=== PATIENT | female | born 1980 | race African-American/Black ===

== ENCOUNTER 2017-02-12 15:25 | Emergency (ER) | payer OTHER, SELFPAY ==
--- NOTE | 2017-02-12 17:13 | RAD ---
TWO VIEWS CHEST: Date: 02-12-17 Comparison: None. History: Body aches with pleuritic change pain and cough. FINDINGS: There is no pneumothorax, pleural fluid, focal consolidation or alveolar edema. Heart and mediastinal contours are unremarkable. IMPRESSION: No acute findings. POS: [facility]
[2017-02-12] MEDS ORDERED: Ibuprofen 800 MG TAB ONE (19:06)
[2017-02-12] MEDS ORDERED: Acetaminophen 500 MG TAB ONE (19:06)
[2017-02-12] MEDS ORDERED: Ondansetron ODT 4 MG TAB ONE (19:06)
--- NOTE | 2017-03-14 14:53 | EKG ---
Test Reason : Blood Pressure : / mmHG Vent. Rate : 108 BPM Atrial Rate : 108 BPM P-R Int : 158 ms QRS Dur : 074 ms QT Int : 318 ms P-R-T Axes : 049 007 026 degrees QTc Int : 426 ms Sinus tachycardia Minimal voltage criteria for LVH, may be normal variant Borderline ECG Confirmed by MARGARITA JARQUIN ([id number]), graphic editor LEE SANTOS ([id number]) on 03/14/2017 2:53:30 PM Referred By: Confirmed By:MARGARITA JARQUIN
== END 2017-02-12 19:07 | disposition home or self-care (01) ==
LOC: ERS 15:25
DX: J11.1 Influenza due to unidentified influenza virus with other respiratory manifestations (principal)
CPT/HCPCS: 71020; 93005; Q0162

== ENCOUNTER 2020-01-01 10:59 | Emergency (ER) | payer OTHER ==
[2020-01-02 15:10] LABS: SARS-CoV-2 MS2 Positive; SARS-CoV-2 N Gene Negative; SARS-CoV-2 S Gene Negative; SARS-CoV-2 by NAA Not Detected (NotDetected); SARS-CoV-2 orf1ab Negative
== END 2020-01-01 12:02 | disposition home or self-care (01) ==
LOC: ERS 10:59
DX: Z20.828 Contact with and (suspected) exposure to other viral communicable diseases (principal)
CPT/HCPCS: 87635; 99283; U0003